=== PATIENT | male | born 1985 | race African-American/Black ===

== ENCOUNTER 2024-11-24 11:58 | Emergency (ER) | payer MEDICAID, SELFPAY ==
[2024-11-24 11:59] VITALS: BMI 31.0
[2024-11-24 12:37] VITALS: BP 133/84; PULSE 96; RESP 17; TEMP 37.1; O2SAT 99; BMI 31.0
--- NOTE | 2024-11-24 12:42 | XR_ITS ---
Examination: CT abdomen and pelvis without contrast. Coronal 3-D reconstructions. Sagittal 2-D reconstructions. Date and time of exam:November 24, 2024 1244 hrs. Indications: Hematuria today with burning sensation with urination CTDI: vol (mGy): 5.92 DLP: (mGycm): 571 Technique: Axial images of the abdomen have been obtained, 3 mm slice thickness Intravenous contrast material has not been administered. Low dose protocols were performed. One or more of the following dose reduction techniques were used; automated exposure control, adjustment of the mA and/or KV according to patient size, use of iterative reconstruction technique. Findings: No focal liver lesions, hepatomegaly 17 cm Contracted gallbladder Spleen is not enlarged No pancreatic or adrenal mass Mild bilateral renal parenchymal scar formation No renal or ureteral calculi, no hydronephrosis Aorta normal size No bowel obstruction No pericecal inflammatory change Urinary bladder wall is thickened up to 8 mm No bladder calculi Negative for prostatomegaly Tiny bilateral inguinal hernias Moderate diffuse lumbar degenerative disc disease Impression: Mild bilateral renal parenchymal scar formation No renal or ureteral calculi No hydronephrosis Cystitis pattern
--- NOTE | 2024-11-24 12:42 | PD.EDADULT ---
ED General RME/HPI General Chief complaint: Urogenital-Male Stated complaint: Blood in Urine Time Seen by Provider: 11/24/24 12:34 Arrival date/time: 11/24/24 11:58 CC: Painless hematuria HPI onset this morning, pale red urine, complains of mild burning, no gonzález pain. Patient denies prior history of similar events is not currently sexually active. Denies all other symptoms including abdominal pain cramping nausea vomiting headache or fever. Related Data Previous Rx's ?Medication ?Instructions ?Recorded ciprofloxacin HCl 500 mg tablet 500 mg PO BID #14 tabs 11/24/24 (Cipro) Allergies Allergy/AdvReac Type Severity Reaction Status Date / Time ampicillin Allergy Unknown UNKNOWN Verified 02/25/23 20:32 Penicillins Allergy Unknown UNKNOWN Verified 02/25/23 20:32 ROACHES Allergy Unknown UNKNOWN Uncoded 02/25/23 20:32 Review of Systems Review of Systems Narrative Review of Systems: GEN: No fever, no chills, no weight loss EYES: No discharge, no visual changes, no pain HEENT: No ear pain, no congestion, no sore throat PULM: No shortness of breath, no cough, no congestion CV: No chest pain, no dyspnea on exertion, no palpitations GI: No nausea, no vomiting, no diarrhea, no pain, no constipation : No frequency, no urgency, no dysuria,+ hematuria MUSC/SKEL: No joint pain, no back pain SKIN: No rash PSYCH: No hallucinations, no depression HEME/LYMPH: No easy bleeding or bruising tendencies NEURO: No weakness, no headache Past Medical History Past Medical History CARDIAC: Negative Congestive Heart Failure RESPIRATORY: Negative Chronic Obstructive Pulmonary Disease (COPD) GENITOURINARY: Negative Renal Disease ENDOCRINE: Negative Diabetes Mellitus Type 1 or Diabetes Mellitus Type 2 Social History SMOKING STATUS: Current some day smoker SUBSTANCE USE: does not use ED Exam Narrative Physical exam: [General: Not in any acute distress Head normocephalic HEENT: Within acceptable limits Neck is supple nontender Chest equal chest rise nontender to palpation Respiratory: Clear to auscultation no wheezes crackles or rubs CV: Rate rhythm is regular no murmurs rubs or clicks Abdomen is soft nontender no masses positive bowel sounds all 4 quadrants Back: No CVA tenderness no spinous process tenderness from cervical spine thoracic and lumbar spine Skin: Intact no petechiae rash induration ulceration or crepitus Extremities: Moving all extremity against resistance cap refill less than 2 seconds neurosensory intact Neuro: Awake alert oriented x3 Glascow coma 15 no focal deficits] Course Quality Measures none Orders Category Date Time Status CT abdomen pelvis wo con Stat Exams 11/24/24 12:[address] abdomen wo con Stat Exams 11/24/24 12:36 Stop Req Urinalysis, C/S if Indicated Stat Lab 11/24/24 13:05 Completed Urine Culture Stat Lab 11/24/24 13:05 Received Vital Signs Vital signs: Vital Signs Temperature 98.7 F 11/24/24 12:37 Pulse Rate 96 11/24/24 12:37 Respiratory Rate 17 11/24/24 12:37 Blood Pressure 133/84 H 11/24/24 12:37 Pulse Oximetry (%) 99 11/24/24 12:37 Oxygen Delivery Method Room Air 11/24/24 12:37 [facility] Patient data External records reviewed:: [facility] previous records Clinical information provided by:: patient Social determinants that could affect healthcare access:: none Patient has the following chronic illnesses:: None How is presenting disease/condition affected by chronic disease/condition?: uneffected by Evaluation data The following diagnostics were reviewed and interpreted by me:: lab results and radiology exam(s) Lab and/or radiology exams considered but not ordered:: Urine is positive for urinary tract infection leukocyte Estrace positive RBC positive and WBC positive CT of the abdomen pelvis is negative for any acute finding Interpretation Summary: UTI Medications Medications considered but not ordered:: None Medication administrations:: None Consultations Consultation(s) initiated? (list below): No Diagnosis Differential Diagnosis ED Complaint MDM: UTI cystitis pyelonephritis Most likely diagnosis given after review of the tests above:: UTI Admission Indicated Admission indicated?: not indicated Explain why admission is indicated or not indicated:: Stable for outpatient follow-up Admission Request Was there a request for admission?: No Disposition Plan Disposition Plan: Discharge Discharge Attestation Discharge Attestation: The patient and all family members were given an opportunity to ask questions and understood the discharge instructions. Discharge instructions specifically effects, indications for sooner follow up or return to the emergency department, and the expected course of current diagnosis. Patient condition: Stable Medical Decision Making Differential Diagnosis Differential Diagnosis: UTI cystitis pyelonephritis Lab Data Labs: Lab Results 01/26/25 Range/Units 13:05 Ur Collection Type Clean Catch Urine Color Yellow (Lt Yel-Yel) Urine Clarity Turbid A (Clear/Hazy) Urine pH 7.0 (5.0-7.0) Ur Specific Needles 1.025 (1.001-1.035) Urine Protein 1+ A (Neg - Trace) Urine Glucose (UA) Negative (Negative) Urine Ketones Negative (Negative) Urine Blood 3+ A (Negative) Urine Nitrite Negative (Negative) Urine Bilirubin Negative (Negative) Urine Urobilinogen (Auto) Negative (0.0-1.0) mg/dL Ur Leukocyte Esterase Positive (Negative) Urine RBC 367 H (0-3) /hpf Urine WBC 310 H (0-5) /hpf Ur Squamous Epith Cells 0 (0-5) /hpf Ur Transition Epith Cell 5 (0-5) /hpf Urine Bacteria None (None) Ur Culture Indicated? Yes Discharge Plan Plan Patient Disposition: HOME (Self Care) Patient condition on transfer: Stable Prescriptions/Referrals Prescriptions/Med Rec: New ciprofloxacin HCl [Cipro] 500 mg tablet 500 mg PO BID Qty: 14 0RF Referrals: No Primary/Family,Physician [Primary Care Provider] - In 1 week Idris Leon MD [Physician] - In 1 week Problem List Clinical Impression: UTI (urinary tract infection) Patient/Caregiver Discharge Instructions Education Materials: ED Bladder Infection, Male (Adult) Print Language: Slovak Stand Alone Forms: Aliyah Award Info., Patient Portal Info Letter PA/LUCILA Supervising Physician PA/ENVIRONMENTAL SCIENCE PROGRAM DIRECTOR Supervising Physician: John Worley ENP
[2024-11-24 13:28] LABS: Collection Type, Urine Clean Catch; Squamous Epithelial Cell,Urine 0 /hpf (0-5)
[2024-11-24 14:19] LABS: Bilirubin,Urine Negative (Negative); Blood,Urine 3+ (Negative); Clarity,Urine Turbid (Clear/Hazy); Color,Urine Yellow (Lt Yel-Yel); Culture Indicated,Urine Yes; Glucose, Urine Negative (Negative); Ketones,Urine Negative (Negative); Leukocyte Esterase,Urine Positive (Negative); Nitrite,Urine Negative (Negative); Protein,Urine 1+ (Neg - Trace); RBC,Urine 367 /hpf (0-3); Specific Gravity,Urine 1.025 (1.001-1.035); Transitional Epi Cells,Urine 5 /hpf (0-5); Urobilinogen,Urine Negative mg/dL (0.0-1.0); WBC,Urine 310 /hpf (0-5)
== END 2024-11-24 15:32 | disposition home or self-care (01) ==
PROVIDERS: Registered Nurse General Practice; Emergency Provider Emergency Medicine
DX: N39.0 Urinary tract infection, site not specified (principal); R31.9 Hematuria, unspecified
CPT/HCPCS: 74176; 81001; 87086; 99284

== ENCOUNTER 2025-06-10 18:17 | Emergency (ER) | payer MEDICAID, SELFPAY ==
[2025-06-10 18:19] VITALS: BMI 31.7
[2025-06-10 18:34] VITALS: BP 118/83; PULSE 80; RESP 20; TEMP 36.6; O2SAT 97
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
[2025-06-10] MEDS: NAPROXEN 250 MG TABLET 500 MG PO (19:02)
[2025-06-10 21:20] VITALS: BP 132/68; PULSE 82; RESP 19; TEMP 36.6; O2SAT 100
== END 2025-06-10 21:21 | disposition home or self-care (01) ==
PROVIDERS: Emergency Provider Emergency Medicine; PCP Family Medicine
DX: S13.4XXA Sprain of ligaments of cervical spine, initial encounter (principal); S39.012A Strain of muscle, fascia and tendon of lower back, initial encounter; V43.52XA Car driver injured in collision with other type car in traffic accident, initial encounter
CPT/HCPCS: 70450; 72125; 72131; 99284; A9270

== ENCOUNTER 2025-09-21 07:48 | Emergency (ER) | payer MEDICAID, SELFPAY ==
--- NOTE | 2025-09-21 07:54 | EKG_ITS ---
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
[2025-09-21 08:05] VITALS: BP 155/78; PULSE 55; RESP 18; TEMP 36.7; O2SAT 96; BMI 28.0
--- NOTE | 2025-09-21 08:21 | EDRME_ITS ---
Rapid Medical Screening Exam [facility] Arrival date/time: 09/21/25 07:48 This is a 40-year-old male that comes into the emergency room with complaints of chest pain. Patient describes the chest pain as a heaviness in his mid chest. Patient stated that started 2 days ago. Patient denies any past medical history. Patient does admit to some alcohol and some marijuana use. Patient states he is physically fit and typically does not have any medical problems. Patient denies any fever, nausea, vomiting, diarrhea. Patient denies any other symptoms. Patient does state that he has been under a lot of stress recently. I have greeted and performed a focused initial assessment of this patient. Initial appropriate labs ordered at this time. A comprehensive ED assessment and evaluation of the patient and analysis of all test and completion of medical decision making process will be conducted by additional ED provider. Chief Complaint: Chest Pain Time Seen by Provider: 09/21/25 07:57 Vital signs: Vital Signs Temperature 98.0 F 09/21/25 08:05 Pulse Rate 55 L 09/21/25 08:05 Respiratory Rate 18 09/21/25 08:05 Blood Pressure 155/78 H 09/21/25 08:05 Pulse Oximetry (%) 96 09/21/25 08:05 Oxygen Delivery Method Room Air 09/21/25 08:05 Exam: Breathing even unlabored, alert and oriented Clinical Impression: Chest pain
--- NOTE | 2025-09-21 08:21 | XR_ITS ---
EXAMINATION: XR chest 1V ORDERING PROVIDER: Sabine Leija NP HISTORY: chest pain TECHNIQUE: Single portable AP radiograph of the chest. COMPARISON: 02/25/2023, chest radiographs. 11/24/2024, CT abdomen pelvis. FINDINGS: Lines and Tubes: Multiple overlying monitoring leads. Lungs: Left greater than right basilar curvilinear markings. No consolidation. Questionable 1.3 cm soft tissue prominence underlying the right lower chest wall lead. Pleura: No pneumothorax or pleural effusion. Cardiomediastinal Silhouette: Normal. Soft Tissues/Bones: Normal. IMPRESSION: 1. Left greater than right bibasilar curvilinear markings favored to represent atelectasis. Developing infection not excluded in the proper clinical setting. 2. Questionable 1.3 cm soft tissue prominence underlying the right lower chest wall lead. This may be due to artifact from overlying lead. Recommend 2 view chest radiographs with repositioning of leads.
--- NOTE | 2025-09-21 08:26 | EDNOTE_ITS ---
ED Chest Pain RME/HPI General Chief Complaint: Chest Pain Stated Complaint: CHEST PAIN Time Seen by Provider: 09/21/25 07:57 Source: patient Arrival date/time: 09/21/25 07:48 Mode of arrival: ambulatory Limitations: no limitations RME / HPI RME / HPI narrative: 09/21/25 07:48 This is a 40-year-old male that comes into the emergency room with complaints of chest pain. Patient describes the chest pain as a heaviness in his mid chest. Patient stated that started 2 days ago. Patient denies any past medical history. Patient does admit to some alcohol and some marijuana use. Patient states he is physically fit and typically does not have any medical problems. Patient denies any fever, nausea, vomiting, diarrhea. Patient denies any other symptoms. Patient does state that he has been under a lot of stress recently. I have greeted and performed a focused initial assessment of this patient. Initial appropriate labs ordered at this time. A comprehensive ED assessment and evaluation of the patient and analysis of all test and completion of medical decision making process will be conducted by additional ED provider. DR. ESTELLA YOUNGER ED EVALUATION: Patient is a 38-year-old male is in the emerged from concerns for chest pain. Symptoms have been on and off over the last couple days. 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 He wants to make sure that his heart is okay. Pain is sometimes worse with movement. Denies any nausea vomiting shortness of breath cough runny nose abdominal pain dysuria hematuria melena bloody stools. Patient does smoke marijuana occasional alcohol patient is compliant with his medications. Related Data Previous Rx's ?Medication ?Instructions ?Recorded ciprofloxacin HCl 500 mg tablet 500 mg PO BID #14 tabs 11/24/24 (Cipro) Allergies Allergy/AdvReac Type Severity Reaction Status Date / Time ampicillin Allergy Unknown UNKNOWN Verified 09/21/25 07:52 Penicillins Allergy Unknown UNKNOWN Verified 09/21/25 07:52 ROACHES Allergy Unknown UNKNOWN Uncoded 09/21/25 07:52 Review of Systems Review of Systems Systems Reviewed: All systems reviewed, normal except as documented Past Medical History Social History SMOKING STATUS: Current every day smoker SUBSTANCE USE: does not use ED Exam General Limitations: Present no limitations General appearance: Present alert and in no apparent distress Head Head exam: Present atraumatic and normocephalic Eye Eye exam: Present normal appearance, PERRL and EOMI ENT ENT exam: Present normal exam and normal oropharynx Neck Neck exam: Present normal inspection Chest Chest inspection: Present normal inspection and symmetric chest wall rise; Absent tenderness Respiratory Respiratory exam: Present normal lung sounds bilaterally; Absent respiratory distress or wheezes Cardiovascular Cardiovascular exam: Present normal rhythm and bradycardia Abdominal Exam Abdominal exam: Present soft; Absent distention or tenderness Extremities Exam Extremities exam: Present normal inspection and full ROM Neurological Exam Neurological exam: Present alert, oriented X3 and CN II-XII intact Psychiatric Psychiatric exam: Present normal mood Skin Skin exam: Present warm, dry and intact Course Quality Measures none Orders Category Date Time Status EKG (ED ONLY) *Do not use* NOW Care 09/21/25 07:54 Completed EKG (ED Only) Stat Exams 09/21/25 07:54 Ordered XR chest 1V Stat Exams 09/21/25 08:21 Completed BNP [B-Type Natriuretic Peptide] Stat Lab 09/21/25 08:45 Completed CBC Stat Lab 09/21/25 08:45 Completed Comprehensive Metabolic Panel Stat Lab 09/21/25 08:45 Completed Drug Screen,Urine Stat Lab 09/21/25 08:40 Completed Free T4 (Free Thyroxine) Stat Lab 09/21/25 08:45 Completed TSH [Thyroid Stimulating Hormone] Stat Lab 09/21/25 08:45 Completed Troponin I Stat Lab 09/21/25 08:45 Completed Troponin I Stat Lab 09/21/25 10:21 Completed Troponin I Stat Lab 09/21/25 11:56 Completed UA, C/S IF [Urinalysis, C/S if Indicated] Stat Lab 09/21/25 08:40 Completed Acetaminophen Tab [Tylenol Tab] Med 09/21/25 08:38 Discontinued 650 mg PO X1 ONE Aspirin [Ecotrin] Med 09/21/25 08:28 Discontinued 81 mg PO X1 ONE Vital Signs Vital signs: Vital Signs Temperature 98.0 F 09/21/25 08:05 Pulse Rate 55 L 09/21/25 08:05 Respiratory Rate 18 09/21/25 08:05 Blood Pressure 155/78 H 09/21/25 08:05 Pulse Oximetry (%) 96 09/21/25 08:05 Oxygen Delivery Method Room Air 09/21/25 08:05 Chest Pain MDM Narrative MDM Narrative:: Patient is a 38-year-old male seen emerged from concerns for chest pain. Vital signs and exam as listed. Concern for ACS arrhythmia electrolyte abnormality viral syndrome muscle strain acute stress reaction. Ordered labs EKG chest x- ray offered medication for symptom relief. EKG performed today at [address] Laina Isabel notable for sinus rhythm, heart rate 85, normal intervals, nonspecific T wave changes not a cardiac alert. Labs without any acute hematologic or metabolic abnormality, troponin not elevated on 2 separate assessments urinalysis without evidence of infection. Chest x-ray with possible atelectasis versus consolidation however patient has not had any cough or fever less likely pneumonia. On reevaluation patient symptoms completely resolved he is hemodynamically stable not distressed will discharge to home with close return precautions follow-up with his primary care doctor as well as recommendation that he sees a strip machine tender for stress test. Patient data External records reviewed:: [facility] previous records Clinical information provided by:: patient Social determinants that could affect healthcare access:: substance use (Patient does smoke marijuana and occasional alcohol ) Patient has the following chronic illnesses:: None How is presenting disease/condition affected by chronic disease/condition?: no chronic disease Evaluation data The following diagnostics were reviewed and interpreted by me:: lab results, radiology exam(s) and EKG tracing(s) (EKG performed today at [address] Laina Isabel notable for sinus rhythm, heart rate 85, normal intervals, nonspecific T wave changes not a cardiac alert. ) Lab and/or radiology exams considered but not ordered:: None Interpretation Summary: See MDM narrative above. Medications / Prescriptions Medications or Prescriptions considered but not ordered:: None Medication administrations:: Medication Administration History Discontinued Medications Acetaminophen (Acetaminophen 325 Mg Tablet) 650 mg PO X1 ONE Stop: 09/21/25 08:39 Last Admin: 09/21/25 08:47 Dose: 650 mg Documented By: DB Aspirin (Aspirin Ec 81 Mg Tabec) 81 mg PO X1 ONE Stop: 09/21/25 08:29 Last Admin: 09/21/25 08:34 Dose: 81 mg Documented By: DB See above Consultations Consultation(s) initiated? (list below): No Diagnosis Chest Pain Differential Diagnosis: other (musculoskeletal chest pain, anxiety related chest pain, and ACS) Most likely diagnosis given after review of the tests above:: Chest pain Admission Indicated Admission indicated?: not indicated Admission Request Was there a request for admission?: No Disposition Plan Disposition Plan: Discharge Discharge Attestation Discharge Attestation: The patient and all family members were given an opportunity to ask questions and understood the discharge instructions. Discharge instructions specifically effects, indications for sooner follow up or return to the emergency department, and the expected course of current diagnosis. Patient condition: Stable Discharge Plan Plan Patient Disposition: HOME (Self Care) Prescriptions/Referrals Prescriptions/Med Rec: No Action ciprofloxacin HCl [Cipro] 500 mg tablet 500 mg PO BID Qty: 14 0RF Referrals: Idris Leon MD [Primary Care Provider, Family Practice] - In 1 week Problem List Clinical Impression: Chest pain Patient/Caregiver Discharge Instructions Education Materials: ED Chest Pain, Uncertain Cause Additional Instructions: Your labs today did not identify any acute abnormality, your cardiac enzyme that we measured on 2 separate occasions was normal. Your liver and kidney function were also normal as well as your thyroid function. Your urine test did not identify any evidence of infection. Given that you have not had a cough or fever less likely this is a presentation of pneumonia. I want you to follow-up with your primary care doctor within the next 1 to 2 days as well as establish care with a strip machine tender as you may benefit from a stress test. Return immediately if you have any worsening symptoms or symptoms of concern. Print Language: Setswana Stand Alone Forms: Aliyah Award Info., Patient Portal Info Letter
[2025-09-21] MEDS: ASPIRIN EC 81 MG TABEC PO (08:34)
[2025-09-21] MEDS: ACETAMINOPHEN 325 MG TABLET 650 MG PO (08:47)
[2025-09-21 08:58] LABS: Basophils # (Auto) 0.0 Thou/mm3 (0.0-0.2); Basophils % (Auto) 1 % (0-2.5); Eosinophils # (Auto) 0.0 Thou/mm3 (0.0-0.5); Eosinophils % (Auto) 1 % (0-10); Hematocrit 47.3 % (41.0-53.0); Hemoglobin 15.8 g/dL (13.5-16.0); Immature Granulocytes Auto 0.01 Thou/mm3 (0.00-0.00); Lymphocytes # (Auto) 1.4 Thou/mm3 (1.0-4.8); Lymphocytes % (Auto) 29 % (10-50); Mean Corpuscular HGB Conc 33.4 g/dl (31.0-37.0); Mean Corpuscular Hemoglobin 29.8 pg (25.0-35.0); Mean Corpuscular Volume 89 fL (80-100); Monocytes # (Auto) 0.4 Thou/mm3 (0.0-0.8); Monocytes % (Auto) 8 % (0-12); Neutrophils # (Auto) 3.1 Thou/mm3 (1.8-7.7); Neutrophils % (Auto) 61 % (37-80); Nucleated Red Blood Cell # 0.00 Thou/mm3 (0.00-0.00); Nucleated Red Blood Cell % 0 /100 WBC (0); Platelet Count 276 Thou/mm3 (140-440); RDW Standard Deviation 42.1 fL (35.1-43.9); Red Blood Count 5.30 Miln/mm3 (4.50-5.90); White Blood Count 5.0 Thou/mm3 (3.8-10.6)
[2025-09-21 08:59] LABS: Collection Type, Urine Clean Catch
[2025-09-21 09:10] LABS: Bilirubin,Urine Negative (Negative); Blood,Urine Negative (Negative); Clarity,Urine Clear (Clear/Hazy); Culture Indicated,Urine Not Indicated; Glucose, Urine Negative (Negative); Ketones,Urine Negative (Negative); Leukocyte Esterase,Urine Negative (Negative); Nitrite,Urine Negative (Negative); PH,Urine 7.0 (5.0-7.0); Protein,Urine Negative (Neg - Trace); RBC,Urine 2 /hpf (0-3); Specific Gravity,Urine 1.003 (1.001-1.035); Squamous Epithelial Cell,Urine < 1 /hpf (0-5); Urobilinogen,Urine Negative mg/dL (0.0-1.0); WBC,Urine < 1 /hpf (0-5)
[2025-09-21 09:25] LABS: Amphetamine/Methamp Scrn,U Negative (Negative); Barbiturate Screen,Urine Negative (Negative); Benzodiazepines Screen,Urine Negative (Negative); Benzoylecgonine Screen, Ur Negative (Negative); Fentanyl Screen,Urine Negative (Negative); Opiate Screen,Urine Negative (Negative); THC Screen,Urine Positive (Negative)
[2025-09-21 09:27] LABS: Alanine Aminotransferase 22 U/L (10-49); Albumin, Serum 4.8 gm/dL (3.5-5.0); Albumin/Globulin Ratio 1.7 (1.2-2.2); Alkaline Phosphatase 85 U/L (46-116); Anion Gap 6 (7-16); Aspartate Amino Transferase 26 U/L (0-34); BUN/Creatinine Ratio 10 Ratio (12-20); Bilirubin,Total 0.6 mg/dL (0.3-1.2); Blood Urea Nitrogen 10 mg/dL (9-23); Calcium 9.3 mg/dL (8.3-10.6); Calcium (Corrected) 9.3 mg/dL (8.5-10.1); Carbon Dioxide 29.6 mMol/L (20.0-31.0); Chloride 107 mMol/L (98-107); Creatinine (Component) 1.0 mg/dL (0.6-1.3); Estimated Creatinine Clearance 104.7 mL/min (>60); Free T4 (Free Thyroxine) 1.31 ng/dL (0.89-1.76); Globulin 2.9 gm/dL (2.3-3.5); Glucose 102 mg/dL (74-106); Osmolality,Calculated 283 (275-295); Potassium 3.7 mMol/L (3.4-5.1); Sodium 143 mMol/L (136-145); Thyroid Stimulating Hormone 0.89 uIU/mL (0.55-4.78); Total Protein 7.7 gm/dL (5.7-8.2); Troponin I < 0.020 ng/mL (0.0-0.045); eGFR > 60 See Note
[2025-09-21 09:57] LABS: Color,Urine Lt-Yellow (Lt Yel-Yel)
[2025-09-21 09:58] LABS: B-Type Natriuretic Peptide < 20 pg/mL (0-100)
[2025-09-21 10:04] VITALS: BP 120/74; PULSE 55; RESP 18; TEMP 36.6; O2SAT 95
[2025-09-21 10:56] LABS: Troponin I < 0.020 ng/mL (0.0-0.045)
[2025-09-21 12:35] LABS: Troponin I < 0.020 ng/mL (0.0-0.045)
[2025-09-21 12:40] VITALS: BP 123/64; PULSE 45; RESP 16; TEMP 36.6; O2SAT 95
[2025-09-21 13:22] VITALS: BP 135/73; PULSE 51; RESP 16; TEMP 36.7; O2SAT 95
== END 2025-09-21 13:23 | disposition home or self-care (01) ==
PROVIDERS: Nurse Practitioner Family; Emergency Provider Emergency Medicine; PCP Family Medicine
DX: R07.9 Chest pain, unspecified (principal); F12.90 Cannabis use, unspecified, uncomplicated
CPT/HCPCS: 36415; 71045; 80053; 80307; 81001; 83880; 84436; 84439; 84443; 84484; 85025; 93005; 99283; A9270